=== PATIENT | female | born 1995 | race Two or more races ===

== ENCOUNTER 2018-04-15 15:18 | Emergency (ER) | payer BC ==
[2018-04-15] MEDS ORDERED: Acetaminophen 500 MG TAB PO ONE (15:32)
[2018-04-15] MEDS ORDERED: Acetaminophen 500 MG TAB ONE (16:00)
[2018-04-15 16:08] LABS: % BASOPHILS 0.6 % (0.0-2.0); % EOSINOPHILS 0.3 % (0.0-5.0); % LYMPHOCYTES 17.2 % (20.0-50.0); % MONOCYTES 4.3 % (2.0-10.0); % NEUTROPHILS 77.6 % (40.0-80.0); BASOPHILE ABSOLUTE 0.1 Th/cumm (0-0.2); HEMATOCRIT 46.8 % (41.0-60); HEMOGLOBIN 15.5 gm/dL (12-16); LYMPHOCYTE ABSOLUTE 1.5 Th/cmm (1.5-3.0); MEAN CELL VOLUME 97.1 fl (81-100); MEAN CORPUSCULAR HEMOGLOBIN 32.1 pg (27.0-31.0); MEAN CORPUSCULAR HGB CONC 33.1 pg (28.0-36.0); MEAN PLATELET VOLUME 8.1 fl; MONOCYTE ABSOLUTE 0.4 Th/cmm (0.3-1.0); NEUTROPHILE ABSOLUTE 6.8 Th/cmm (1.8-8.0); PLATELET COUNT 233 Th/cmm (150-400); RED BLOOD COUNT 4.83 Mil/cmm (3.80-5.10); RED CELL DISTRIBUTION WIDTH 11.8 % (11.5-20.0); WHITE BLOOD COUNT 8.8 Th/cmm (4.8-10.8)
--- NOTE | 2018-04-15 16:11 | ED Physician Chart ---
ED Chief Complaint/HPI - Patient Information Date Seen:: 04/15/18 Time Seen:: 15:46 Chief Complaint:: headache History of Present Illness:: this is a 23 yo female who is concerned because of a hangover with a headache from drinking straight vodka all night. she denies chest pain and abdominal pain. she denies and vomiting. Allergies:: Allergies Allergy/AdvReac Type Severity Reaction Status Date / Time No Known Allergies Allergy Verified 04/15/18 15:37 Vitals:: Vital Signs - 8 hr 04/15/18 15:37 Temp 98.2 F HR 75 RR 16 BP 122/73 O2 Sat % 100 Historian:: Patient, Family Member (sister) Review:: Nurse's Note Reviewed ED Review of Systems - Review of Systems General/Constitutional: No fever, No chills, No weight loss, No weakness, No diaphoresis, No edema, No loss of appetite Skin: No skin lesions, No rash, No bruising Head: Headache, No light-headedness Eyes: No loss of vision, No pain, No diplopia ENT: No earache, No nasal drainage, No sore throat, No tinnitus Neck: No neck pain, No swelling, No thyromegaly, No stiffness, No mass noted Cardio Vascular: No chest pain, No palpitations, No PND, No orthopnea, No edema Pulmonary: No SOB, No cough, No sputum, No wheezing GI: No nausea, No vomiting, No diarrhea, No pain, No melena, No hematochezia, No constipation, No hematemesis G/U: No dysuria, No frequency, No hematuria Musculoskeletal: No bone or joint pain, No back pain, No muscle pain Endocrine: No polyuria, No polydipsia Psychiatric: No prior psych history, No depression, No anxiety, No suicidal ideation Hematopoietic: No bruising, No lymphadenopathy Allergic/Immuno: No urticaria, No angioedema Neurological: No syncope, No focal symptoms, No weakness, No paresthesia, No headache, No seizure, No dizziness, No confusion, No vertigo ED Past Medical History - Past Medical History Obtainable: Yes Past Medical History: No significant medical hx Family History: None Social History: Smoker, Alcohol, Illicit Drug Use, Single, Lives With Parents Surgical History: None Medication: Reviewed Family Medical History - Family Member Mother History Unknown: Yes Living Status: Still Living ED Physical Exam - Physical Examination General/Constitutional: Awake, Well-developed, well-nourished, Alert, No distress, GCS 15, Non-toxic appearing, Ambulatory Head: Atraumatic Eyes: Lids, conjuctiva normal, PERRL, EOMI Skin: Nl inspection, No rash, No skin lesions, No ecchymosis, Well hydrated, No lymphadenopathy ENMT: External ears, nose nl, Nasal exam nl, Lips, teeth, gums nl Neck: Nontender, Full ROM w/o pain, No JVD, No nuchal rigidity, No bruit, No mass, No stridor Respiratory: Nl effort/Exclusion, Clear to Auscultation, No Wheeze/Rhonchi/Rales Cardio Vascular: RRR, No murmur, gallop, rubs, NL S1 S2 GI: No tenderness/rebounding/guarding, No organomegaly, No hernia, Normal BS's, Nondistended, No mass/bruits, No McBurney tenderness : No CVA tenderness Extremities: No tenderness or effusion, Full ROM, normal strength in all extremities, No edema, Normal digits & nails Neuro/Psych: Alert/oriented, DTR's symmetric, Normal sensory exam, Normal motor strength, Judgement/insight normal, Mood normal, Normal gait, No focal deficits Misc: Normal back, No paraspinal tenderness ED Assessment - Assessment General Assessment: hangover from etoh abuse ED Septic Shock - . Is Septic Shock (SBP<90, OR Lactate>4 mmol\L) present?: No - <6hrs of presentation: Vital Signs: Vital Signs - 8 hr 04/15/18 15:37 Temp 98.2 F HR 75 RR 16 BP 122/73 O2 Sat % 100 ED Reassessment (Disposition) - Reassessment Reassessment Condition:: Improved - Aftercare/Follow up Instructions Aftercare/Follow-Up Instructions:: Counseled pt regarding lab results/diagnosis & need follow up, Refer to Discharge Instructions, Counseled pt & family regarding lab results/diagnosis & need follow up Medication Prescribed:: fanatrex - Patient Disposition Discharge/Transfer:: Home Condition at Disposition:: Improved
[2018-04-15 16:15] LABS: ALB/GLOB RATIO 1.6 (1.0-1.8); ALBUMIN 4.7 gm/dL (3.7-5.3); ALKALINE PHOSPHATASE 54 U/L (34-104); BILIRUBIN,TOTAL 0.6 mg/dL (0.3-1.0); BUN - UREA NITROGEN 14 mg/dL (7-25); CARBON DIOXIDE 26.7 mEq/L (21.0-31.0); CHLORIDE 100 mEq/L (98-107); CREATININE - SERUM 0.7 mg/dL (0.6-1.2); GFR AFRICAN-AMERICAN > 60.0 ml/min (>90); GFR NON AFRICAN-AMERICAN > 60.0 ml/min; GLUCOSE 103 mg/dL (70-105); POTASSIUM SERUM 3.7 mEq/L (3.5-5.1); SGOT 23 U/L (13-39); SGPT/ALT 22 U/L (7-52); SODIUM SERUM 139 mEq/L (136-145); TOTAL PROTEIN,SERUM 7.7 gm/dL (6.0-8.3)
[2018-04-15 17:03] LABS: URINE SOURCE CLEAN C
[2018-04-15 17:04] LABS: URINE BILIRUBIN NEGATIVE (NEGATIVE); URINE BLOOD NEGATIVE (NEGATIVE); URINE GLUCOSE (UA) NEGATIVE (NEGATIVE); URINE KETONE TRACE mg/dL (NEGATIVE); URINE LEUKOCYTE ESTERASE NEGATIVE (NEGATIVE); URINE NITRATE NEGATIVE (NEGATIVE); URINE PH 8.5 (4.6 - 8.0); URINE PROTEIN 100 mg/dL (NEGATIVE)
[2018-04-15 17:08] LABS: URINE CLARITY CLEAR (CLEAR); URINE COLOR YELLOW
[2018-04-15 17:09] LABS: URINE BACTERIA FEW /hpf (NONE SEEN); URINE EPITHELIAL CELLS FEW /lpf (FEW); URINE MICROSCOPIC INDICATED? YES; URINE RBC NONE SEEN /hpf (0-5); URINE WBC 0-2 /hpf (0-5)
[2018-04-15 17:23] LABS: BARBITURATES URINE POSITIVE (NEGATIVE)
[2018-04-15 17:25] LABS: CANNABINOID THC POSITIVE (NEGATIVE)
[2018-04-15 17:26] LABS: AMPHETAMINE URINE NEGATIVE (NEGATIVE); BENZODIAZEPINES QUAL URINE NEGATIVE (NEGATIVE); COCAINE METABOLITE QUAL URINE NEGATIVE (NEGATIVE); METHADONE URINE NEGATIVE (NEGATIVE); METHAMPHETAMINES QUAL URINE NEGATIVE (NEGATIVE); OPIATES (MORPHINE) QUAL. URINE NEGATIVE (NEGATIVE); PHENCYCLIDINE (PCP) URINE NEGATIVE (NEGATIVE); TRICYCLICS (TCA) QUAL. URINE NEGATIVE (NEGATIVE)
== END 2018-04-15 17:36 | disposition home or self-care (01) ==
LOC: ER 15:18
DX: F10.10 Alcohol abuse, uncomplicated (principal); R51 Headache; F17.200 Nicotine dependence, unspecified, uncomplicated
CPT/HCPCS: 36415-UA; 80053-TC; 80307; 80320-TC; 81001-TC; 84443-TC; 85025-TC; Z7502; Z7610